=== PATIENT | female | born 1985 | race Caucasian/White ===

== ENCOUNTER 2020-05-13 09:44 | Emergency (ER) | payer MEDICAID ==
[~2020-05-13] VITALS: Ht 175.3 cm; Wt 96.9 kg
--- NOTE | 2020-05-13 10:48 | NUR ---
DIRECTOR HE[employer] CART TO ROOM.
--- NOTE | 2020-05-13 10:48 | NUR ---
PT STATES SHE'S HERE FOR "ALL SORTS OF THINGS: LT EAR, RT FOOT, POSSIBLE STD, VAGINAL DISCHARGE (CLEAR, "NOT NORMAL"). NO SEXUAL INTERCOURSE IN PAST 6 MONTHS. PRIOR TO THAT, "MASSIVE AMOUNTS OF DISCHARGE", PAINFUL. WENT TO HEALTH DEPT; RX ANTIBIOTIC. HAD UNPROTECTED SEX W/ SAME PERSON AFTER SX CLEARED. PT CURRENTLY LIVING AT [facility]. LMP 05/03/20
--- NOTE | 2020-05-13 10:59 | NUR ---
PRODUCTION INTERNSHIP EXAM PER DR LUA W/ THIS RN ASSISTANCE.
[2020-05-13] MEDS ORDERED: HYDR50TA99 PO (11:01)
[2020-05-13 11:04] VITALS: BP 91/43
--- NOTE | 2020-05-13 11:25 | NUR ---
PT REPORT TO ARIES DURAN. PT CARE TRANSFERRED. DR LUA AWAITING LAB RESULT.
[2020-05-13 11:28] LABS: CLUE CELLS NONE SEEN (NONE SEEN); WET PREP WBCS FEW (FEW)
--- NOTE | 2020-05-13 11:42 | NUR ---
PT REQUESTS IBUPROFEN 800MG FOR EAR PAIN. WILL NOTIFY ERP
[2020-05-13] MEDS ORDERED: IBUPROFEN 600 MG TABLET ONE (12:08)
--- NOTE | 2020-05-13 12:10 | NUR ---
MEDS ADMIN PER MAR
[2020-05-13] MEDS ORDERED: IBUPROFEN 600 MG TABLET PO ONE (12:30)
== END 2020-05-13 12:17 | disposition home or self-care (01) ==
LOC: ED 10:41
DX: H60.62 Unspecified chronic otitis externa, left ear (principal); N76.0 Acute vaginitis; B35.3 Tinea pedis
CPT/HCPCS: 87210; 87491; 87591; 87808; 99283